=== PATIENT | male | born 1980 | race Caucasian/White ===

== ENCOUNTER 2017-01-10 14:37 | Emergency (ER) | payer BC ==
[2017-01-10] MEDS ORDERED: methylPREDNISolone 125 MG* 2 ML VIAL IV ONE (14:49)
[2017-01-10] MEDS ORDERED: EPINEPHrine AMP 1 MG/ML IM ONE (15:19)
[2017-01-10] MEDS ORDERED: EPINEPHrine AMP 1 MG/ML ONE (15:20)
--- NOTE | 2017-01-10 15:28 | UC ---
Allergic Reaction HPI - HPI Summary HPI Summary: About 45 minutes ago pt was stung by ~10 white-faced hornets on scalp and RUE. Within a few minutes noticed some redness and itchiness, it quickly spread to his entire body. Took a cool shower and benadryl, then came in because symptoms were worsening. Denies chest pain, n/v/d, fainting, wheezing, or cough. No swelling in tongue or face. Scratchiness in throat at home that is resolving in the clinic. - History of Current Complaint Chief Complaint: UCAllergicReaction Stated Complaint: SYUNG BY BEES Time Seen by Provider: 01/10/17 15:12 Hx Obtained From: Patient Onset/Duration: Sudden Onset Severity Initially: Mild Severity Currently: Moderate Location: Diffuse Character: Pruritus, Hives Aggrevating Factor(s): Heat Alleviating Factor(s): Antihistamines Associated Signs And Symptoms: Positive: Rash. Negative: Chest Pain, Cough Wheezing, Difficulty Breathing, Hoarseness, Nausea, Syncope, Vomiting - Related Hx Possible Reaction To: Insect - Allergies/Home Medications Allergies/Adverse Reactions: Allergies Allergy/AdvReac Type Severity Reaction Status Date / Time No Known Allergies Allergy Verified 01/10/17 14:44 Home Medications: Home Medications Diphenhydramine HCl [Benadryl Allergy 25 MG TAB] 50 mg PO 01/10/17 [History] PMH/Surg Hx/FS Hx/Imm Hx Previously Healthy: Yes - Surgical History Surgical History: None - Family History Known Family History: Positive: Hypertension - Social History Lives: With Family Alcohol Use: None Substance Use Type: None Smoking Status (MU): Heavy Every Day Tobacco Smoker Type: Cigarettes Review of Systems Constitutional: Negative Skin: Rash Eyes: Negative ENT: Negative Respiratory: Negative Cardiovascular: Negative Gastrointestinal: Negative Genitourinary: Negative Motor: Negative Neurovascular: Negative Musculoskeletal: Negative Neurological: Negative Psychological: Negative All Other Systems Reviewed And Are Negative: Yes Physical Exam Triage Information Reviewed: Yes Appearance: No Pain Distress, Well-Nourished Vital Signs: Initial Vital Signs Temp 98.6 F 01/10/17 14:40 Pulse 103 01/10/17 14:40 Resp 18 01/10/17 14:40 BP 152/82 01/10/17 14:40 Pulse Ox 98 01/10/17 14:40 Vital Signs Reviewed: Yes Eye Exam: Normal, Other - PERRL Eyes: Positive: Conjunctiva Clear ENT: Positive: Normal ENT inspection, Hearing grossly normal, Pharynx normal, TMs normal, Other: - pharynx widely patent Dental: Positive: Gross Decay/Caries @ Neck exam: Normal Respiratory Exam: Normal Respiratory: Positive: Chest non-tender, Lungs clear, Normal breath sounds, No respiratory distress, No accessory muscle use. Negative: Wheezing Cardiovascular: Positive: No Murmur, Tachycardia Musculoskeletal Exam: Normal Musculoskeletal: Positive: Strength Intact Neurological Exam: Normal Neurological: Positive: Alert Psychological Exam: Normal Skin Exam: Other - urticaria diffuse over entire body. No swelling of face or tongue Re-Evaluation - Re-Evaluation First Eval Re-Evaluation Time: 15:05 Change: Improved - rash fading Second Eval Re-Evaluation Time: 15:30 Change: Improved - rash still improving. No trouble breathing. Third Eval Re-Evaluation Time: 16:04 Change: Improved - hives nearly gone. Feeling much better. Allergic Reaction Course/Dx - Differential Dx/Diagnosis Differential Diagnosis/HQI/PQRI: Anaphylaxis, Angioedema, Local Allergic Reaction, Urticaria Provider Diagnoses: urticaria. allergic reaction to insect stings Discharge - Discharge Plan Condition: Stable Disposition: HOME Prescriptions: Epinephrine [Epipen 2-Frank] 0.3 mg IM SEE INSTRUCTIONS #1 inj predniSONE TAB* [Deltasone TAB*] 50 mg PO DAILY #5 tab Patient Education Materials: Urticaria (ED) Referrals: No Primary Care Phys,NOPCP [Primary Care Provider] - Bhavani Paiz MD [Medical Doctor] - 2 Weeks Additional Instructions: If you develop trouble breathing, vomiting, fainting, or chest pain at any time in the next 24 hours, please go to the emergency department. You may notice that your rash comes and goes, but it should continue to respond to the benadryl and steroid. Take 50mg benadryl up to 4 times per day as needed until the hives are completely gone for at least a day. Arrange a follow-up visit with an chemical maker to discuss whether you need to carry an epi-pen long-term.
[2017-01-10] MEDS ORDERED: diPHENhydraMINE PO* 25 MG PO ONE (16:01)
[2017-01-10] MEDS ORDERED: predniSONE TAB* 20 MG PO ONE (16:01)
[2017-01-10 16:37] VITALS: BP 140/78
== END 2017-01-10 16:27 | disposition home or self-care (01) ==
LOC: UCEAST 14:37
DX: T63.441A Toxic effect of venom of bees, accidental (unintentional), initial encounter (principal); L50.9 Urticaria, unspecified; Y92.9 Unspecified place or not applicable; F17.210 Nicotine dependence, cigarettes, uncomplicated
CPT/HCPCS: 96372; 96374; 99202; A9270-GY; G0463; J0171; J2930; J7512

== ENCOUNTER 2018-08-14 17:29 | Emergency (ER) | payer BC ==
[2018-08-14 17:43] VITALS: BP 122/73
--- NOTE | 2018-08-14 17:50 | UC ---
UC General HPI - HPI Summary HPI Summary: on 08/11/18 pt c/o feeling weak, lightheaded and having bodyaches. a short time later he developed vomiting and diarrhea. the vomiting lasted that night and the diarrhea continued until today, he had recurrent vomiting. he denies abdominal pain, blood in stool, IBD, travel hx and recent antibiotic use. he has no fever but has felt chilled. he would like a flu test. - History of Current Complaint Chief Complaint: UCGI Stated Complaint: DIARRHEA/VOMITING Time Seen by Provider: 08/14/18 17:39 Hx Obtained From: Patient Pain Intensity: 0 Associated Signs & Symptoms: Negative: Syncope, SOB - Allergy/Home Medications Allergies/Adverse Reactions: Allergies Allergy/AdvReac Type Severity Reaction Status Date / Time beestings Allergy Severe swelling Uncoded 08/14/18 17:45 of throat PMH/Surg Hx/FS Hx/Imm Hx Previously Healthy: Yes - Surgical History Surgical History: None - Family History Known Family History: Positive: Hypertension - Social History Occupation: Employed Full-time Lives: With Family Alcohol Use: Rare Substance Use Type: None Smoking Status (MU): Heavy Every Day Tobacco Smoker Type: Cigarettes Amount Used/How Often: 1/2 ppd Review of Systems All Other Systems Reviewed And Are Negative: Yes Constitutional: Positive: Chills Gastrointestinal: Positive: Vomiting, Diarrhea, Nausea. Negative: Abdominal Pain Motor: Positive: Weakness Musculoskeletal: Positive: Myalgia Physical Exam Triage Information Reviewed: Yes Appearance: Well-Appearing Vital Signs: Initial Vital Signs Temp 99.3 F 08/14/18 17:39 Pulse 81 08/14/18 17:39 Resp 16 08/14/18 17:39 BP 122/73 08/14/18 17:39 Pulse Ox 99 08/14/18 17:39 Vital Signs Reviewed: Yes Eyes: Positive: Conjunctiva Clear ENT: Positive: Pharynx normal, TMs normal. Negative: Nasal congestion, Nasal drainage Neck: Positive: Supple, Nontender, No Lymphadenopathy Respiratory: Positive: Lungs clear, Normal breath sounds Cardiovascular: Positive: RRR, No Murmur Abdomen Description: Positive: Nontender, No Organomegaly, Soft. Negative: Distended, Guarding Bowel Sounds: Positive: Present Musculoskeletal: Positive: ROM Intact Neurological: Positive: Alert Psychological: Positive: Normal Response To Family, Age Appropriate Behavior Skin Exam: Normal Skin: Negative: Rashes Course/Dx - Course Course Of Treatment: RAPID FLU=NEGATIVE - Differential Dx - Multi-Symptom Differential Diagnoses: Other - non toxic. no acute abdomen. no risk for c-diff colitis or travelers diarrhea. - Diagnoses Provider Diagnosis: Vomiting, Diarrhea Discharge - Sign-Out/Discharge Documenting (check all that apply): Patient Departure All imaging exams completed and their final reports reviewed: No Studies - Discharge Plan Condition: Stable Disposition: HOME Prescriptions: Ondansetron ODT TAB* [Zofran 4 MG Odt TAB*] 4 mg PO Q6H PRN #20 tab.odt PRN Reason: Nausea/Vomiting Patient Education Materials: Acute Nausea and Vomiting (ED), Acute Diarrhea (ED ) Forms: *Work Release Referrals: SETH Bosch [Medical Doctor] - Additional Instructions: CONSIDER OVER THE COUNTER IMODIUM NEEDED PER LABEL. FOLLOW UP IF NOT BETTER IN 3-5 DAYS. GO TO THE ER IF WORSE. - Billing Disposition and Condition Condition: STABLE Disposition: Home
[2018-08-14] MEDS ORDERED: Ondansetron ODT TAB* 4 MG PO ONE (17:56)
[2018-08-14 18:21] LABS: Influenza A Molecular NEGATIVE (Negative); Influenza B Molecular NEGATIVE (Negative)
== END 2018-08-14 18:26 | disposition home or self-care (01) ==
LOC: UCCORT 17:29
DX: R19.7 Diarrhea, unspecified (principal); R11.10 Vomiting, unspecified; R53.1 Weakness; Z91.030 Bee allergy status; R42 Dizziness and giddiness; F17.210 Nicotine dependence, cigarettes, uncomplicated; R68.83 Chills (without fever)
CPT/HCPCS: 99212; A9270-GY; G0463